=== PATIENT | female | born 1975 | race Two or more races ===

== ENCOUNTER 2018-06-15 16:42 | Inpatient (IN) | payer OTHER ==
[~2018-06-15] VITALS: Ht 152.4 cm; Wt 83.9 kg
--- NOTE | 2018-06-15 17:29 | NUR ---
PACIENTE ALERTA Y ORIENTADA POR EKATERINA ESFERAS QUIEN REFIERE DOLOR EN [place], ORINA AMARILLO INTESNO FETIDO Y OJOS AMARILLOS DESDE HACE 2 GARCIA.
--- NOTE | 2018-06-15 19:19 | NUR ---
SE ORIENTA A PTE SOBRE PROCESO DE ADMINISTRACION DE MED PO & HERMELINDA DE MUESTRAS, PTE REFIERE ENTENDER INF NIXON Y ESPERA EN ALEENA POR RESULTADOS.
--- NOTE | 2018-06-15 21:16 | NUR ---
SE HACE HERMELINDA DE VENOPUNCION LA CUAL SE VALERIE PATENTE NILA DE EDEMA Y ENROJECIMIENTO CON IV LFUID PATENTE PEND A SONOGRAMA ABDOMINAL.
--- NOTE | 2018-06-16 07:34 | NUR ---
SE RECIBE PTE FEMENIA DE 42 YRS ALERTA CONCIENTE Y TRANQUILA EN COMPANIA DE FAMILIAR. PTE EN ESPERA ESTUDIO DE SONOGRAMA.
[2018-06-19] MEDS ORDERED: ZYRTEC10 M3 PO (11:45)
[2018-06-19] MEDS ORDERED: DEXAMETHASONE2 MG PO (11:46)
[2018-06-19] MEDS ORDERED: ZANTAC150 MG PO (11:47)
== END 2018-06-19 12:37 | disposition home or self-care (01) | DRG 446 ==
LOC: ER 16:42 → MEDJ 06-16 11:03
PROVIDERS: ADMIT Internal Medicine
PROC: BW40ZZZ Ultrasonography of Abdomen (ICD-10-PCS; principal; 2018-06-16)
PROC: BF37ZZZ Magnetic Resonance Imaging (MRI) of Pancreas (ICD-10-PCS; 2018-06-16)
DX: K80.51 Calculus of bile duct without cholangitis or cholecystitis with obstruction (principal); R74.0 Nonspecific elevation of levels of transaminase and lactic acid dehydrogenase [LDH]; R94.5 Abnormal results of liver function studies; K71.0 Toxic liver disease with cholestasis; T36.0X5A Adverse effect of penicillins, initial encounter